=== PATIENT | male | born 1965 | race Caucasian/White ===

== ENCOUNTER 2016-06-20 06:03 | Emergency (ER) | payer OTHER ==
[~2016-06-20] VITALS: Ht 180.3 cm; Wt 154.1 kg
[~2016-06-20 06:03] MED LIST: ADULT FOLDING1 EACH MC; ASPIRIN81 M2 PO; ATORVASTATIN CA10 MG PO; CYMBALTA60 MG PO; FISH OIL 1,0001 EAC7 PO; GLUCOSAMINE CH1 EAC7 PO; HYZAAR 100-11 TABLET PO; KEFLEX500 MG PO; LIPITOR20 MG PO; LOSARTAN-HCTZ1 EAC1 PO; LYRICA150 MG PO; NEXIUM20 MG PO; NEXIUM40 MG PO; NORVASC10 MG PO; OXYCODONE HCL10 MG PO; VITAMIN D31000 UNI2 PO
[2016-06-20 06:41] LABS: EOSINOPHIL (%) 5.4 % (0-5); EOSINOPHIL COUNT 0.3 K/uL (0-0.3); HEMATOCRIT 43.9 % (38.0-50.0); IMMATURE GRANULOCYTE (%) 0.3 % (0.0-0.7); LYMPHOCYTE COUNT 1.7 K/uL (1.0-2.8); MCH 29.2 PG (29.0-34.0); MCHC 33.5 G/DL (30.0-36.0); MCV 87.1 FL (86-99); MEAN PLAT.VOLUME 10.3 uM^3 (9.0-12.4); MONOCYTE (%) 12.7 % (3-12); MONOCYTE COUNT 0.8 K/uL (0-0.8); NEUTROPHIL (%) 51.4 % (45-76); PLATELET COUNT 214 K/uL (156-360); RBC DIS.WIDTH-SD 40.7 % (39-53); RED BLOOD COUNT 5.04 M/uL (4.00-5.50); WHITE BLOOD COUNT 5.9 K/uL (4.1-10.2)
[2016-06-20 06:52] LABS: CHLORIDE 106 mEq/L (99-109); D-DIMER ELISA 0.29 mg/L FEU (< 0.57); POTASSIUM 3.9 mEq/L (3.7-5.4); SODIUM 138 mEq/L (136-147)
[2016-06-20 06:53] LABS: GLUCOSE 109 mg/dL (70-99)
[2016-06-20 06:55] LABS: ANION GAP 10 MEQ/L (2-14)
[2016-06-20 06:57] LABS: GFR ESTIMATE (CALCULATED) > 59 mL/min/
[2016-06-20 06:58] LABS: UREA NITROGEN (BUN) 12 mg/dL (9-23)
[2016-06-20 07:01] LABS: TROP-I INTERPRETATION NEGATIVE; TROPONIN-I < 0.01 ng/mL (0.0-0.30)
[2016-06-20 09:08] LABS: TROP-I INTERPRETATION NEGATIVE; TROPONIN-I < 0.01 ng/mL (0.0-0.30)
[2016-06-20 09:29] VITALS: BP 128/83
[2016-06-20] MEDS ORDERED: MOTRIN800 MG PO (09:32)
== END 2016-06-20 09:55 | disposition home or self-care (01) ==
LOC: EME 06:03
PROVIDERS: Emergency Medicine
DX: R07.89 Other chest pain (principal); I10 Essential (primary) hypertension; Z87.891 Personal history of nicotine dependence
CPT/HCPCS: 71010; 80048; 84484; 85025; 85379; 93005; 99281; 99284